=== PATIENT | male | born 1995 | race Caucasian/White ===

== ENCOUNTER 2018-05-29 19:39 | Emergency (ER) | payer MEDICAID, OTHER ==
[~2018-05-29] VITALS: Ht 175.3 cm; Wt 109.1 kg
[2018-05-29] MEDS ORDERED: ONDA4TAB6 PO (21:44)
[2018-05-29] MEDS ORDERED: ONDANSETRON 4 MG ORAL DISINTEGRATING TAB (Q0162 PER 1MG) PO ONE (21:45)
[2018-05-29] MEDS ORDERED: CYCL10TA PO (21:47)
[2018-05-29 21:51] VITALS: BP 141/64
== END 2018-05-29 22:03 | disposition home or self-care (01) ==
LOC: M ED 19:39
DX: K52.9 Noninfective gastroenteritis and colitis, unspecified (principal); F17.220 Nicotine dependence, chewing tobacco, uncomplicated; Z79.899 Other long term (current) drug therapy
CPT/HCPCS: 99283; Q0162

== ENCOUNTER → 2018-07-04 | Outpatient (REF) | payer OTHER ==
[~2018-07-04] MED LIST: CYCL10TA PO; ONDA4TAB6 PO
== END ==
LOC: M SFHCLERA 13:07
PROVIDERS: ATTEND Nurse Practitioner Family
DX: J02.9 Acute pharyngitis, unspecified (principal)

== ENCOUNTER 2018-07-23 19:23 | Emergency (ER) | payer OTHER, SELFPAY ==
[~2018-07-23] VITALS: Ht 175.3 cm; Wt 104.5 kg
[2018-07-23] MEDS ORDERED: ONDANSETRON 4MG/2ML VIAL (J2405) IV ONE (20:15)
[2018-07-23] MEDS ORDERED: ONDANSETRON 4 MG ORAL DISINTEGRATING TAB (Q0162 PER 1MG) PO ONE (20:15)
[2018-07-23 20:28] LABS: BASO # 0.1 10^3/uL (0.0-0.2); BASO % 0.7 % (0.0-1.0); EOS # 0.1 10^3/uL (0.0-0.50); EOS % 0.6 % (0.0-3.0); HEMATOCRIT 45.8 % (42.0-52.0); HEMOGLOBIN 15.1 g/dl (13.5-17.5); LYMPH # 2.9 10^3/uL (1.5-6.5); LYMPH % 25.5 % (24.0-44.0); MEAN CORPUSCULAR HEMOGLOBIN 28.3 pg (27.0-33.0); MEAN CORPUSCULAR VOLUME 85.8 fl (80.0-96.0); MONO # 0.6 10^3/uL (0.0-0.8); MONO % 5.1 % (0.0-5.0); NEUTROPHILS # 7.6 10^3/uL (1.8-7.7); NEUTROPHILS % 67.5 % (36.0-66.0); PLATELET COUNT, AUTOMATED 492 10^3/uL (150-450); RED BLOOD COUNT 5.34 10^6/uL (4.30-6.10); WHITE BLOOD COUNT 11.3 10^3/uL (4.0-10.0)
[2018-07-23 20:50] LABS: ALBUMIN 5.1 GM/DL (3.2-5.2); ALT/SGPT 55 U/L (12-78); BILIRUBIN,DIRECT 0.2 MG/DL (0.0-0.2); BILIRUBIN,TOTAL 0.8 MG/DL (0.2-1.0); BLOOD UREA NITROGEN 6 MG/DL (7-18); CALCIUM LEVEL 9.7 MG/DL (8.5-10.1); CARBON DIOXIDE LEVEL 26 MEQ/L (21-32); CHLORIDE LEVEL 106 MEQ/L (98-107); GLOMERULAR FILTRATION RATE > 60.0 (>60); GLUCOSE, FASTING 88 MG/DL (70-100); LIPASE 116 U/L (73-393); SODIUM LEVEL 140 MEQ/L (136-145); TOTAL PROTEIN 8.1 GM/DL (6.4-8.2)
--- NOTE | 2018-07-23 21:30 | REPVR ---
EXAM: US Abdomen Limited, Right Upper Quadrant EXAM DATE/TIME: 07/23/2018 8:41 PM CLINICAL HISTORY: 23 years old, male; Abdominal pain; Acute; Additional info: Ruq pain TECHNIQUE: Imaging protocol: Real-time ultrasound of the abdomen with image documentation. Examination was focused on the right upper quadrant. COMPARISON: No relevant prior studies available. FINDINGS: Liver: The liver is diffusely increased in echotexture. There is attenuation of sound as it passes through the liver. The liver measures at least 17 cm in craniocaudal span. Gallbladder: Normal. No gallstones. There is no gallbladder wall thickening. Common bile duct: The common bile duct measures 3 mm. Pancreas: Not seen due to bowel gas Right kidney: The right kidney measures 11.7 x 6.6 x 6.7 cm. No hydronephrosis IMPRESSION: 1. No gallstones. No ductal dilatation. 2. Hepatic steatosis. Electronically signed by: Kayla Westbrook On 07/23/2018 21:30:04 PM
[2018-07-23] MEDS ORDERED: ONDA4TAB6 PO (22:10)
[2018-07-23] MEDS ORDERED: ACETAMINOPHEN 325 MG TAB PO ONE (22:15)
[2018-07-23 22:17] VITALS: BP 139/85
== END 2018-07-23 22:26 | disposition home or self-care (01) ==
LOC: M ED 19:23
DX: A08.4 Viral intestinal infection, unspecified (principal); K76.0 Fatty (change of) liver, not elsewhere classified; Z20.828 Contact with and (suspected) exposure to other viral communicable diseases; F17.220 Nicotine dependence, chewing tobacco, uncomplicated
CPT/HCPCS: 36415; 76705; 80048; 80076; 83690; 85025; 99283; Q0162

== ENCOUNTER 2018-07-25 12:00 | Emergency (ER) | payer SELFPAY ==
[~2018-07-25] VITALS: Ht 175.3 cm; Wt 102.6 kg
[2018-07-25] MEDS ORDERED: NS 1,000 ML IV ONE (12:45)
[2018-07-25] MEDS ORDERED: METOCLOPRAMIDE INJ 10MG/2ML VIAL (J2765) IV ONE (12:45)
[2018-07-25] MEDS ORDERED: KETOROLAC 30 MG/ML VIAL (J1885) IV ONE (12:45)
[2018-07-25 13:29] LABS: BASO # 0.1 10^3/uL (0.0-0.2); BASO % 0.4 % (0.0-1.0); EOS % 0.2 % (0.0-3.0); HEMATOCRIT 44.3 % (42.0-52.0); HEMOGLOBIN 14.6 g/dl (13.5-17.5); LYMPH # 1.9 10^3/uL (1.5-6.5); LYMPH % 10.8 % (24.0-44.0); MEAN CORPUSCULAR HEMOGLOBIN 28.2 pg (27.0-33.0); MEAN CORPUSCULAR VOLUME 85.7 fl (80.0-96.0); MONO # 1.1 10^3/uL (0.0-0.8); MONO % 6.5 % (0.0-5.0); NEUTROPHILS % 81.7 % (36.0-66.0); PLATELET COUNT, AUTOMATED 425 10^3/uL (150-450); RED BLOOD COUNT 5.17 10^6/uL (4.30-6.10); WHITE BLOOD COUNT 17.1 10^3/uL (4.0-10.0)
[2018-07-25 14:00] LABS: INFLUENZA A AMPLIFICATION NEGATIVE (NEGATIVE); INFLUENZA B AMPLIFICATION NEGATIVE (NEGATIVE)
[2018-07-25 14:40] LABS: ALBUMIN 4.5 GM/DL (3.2-5.2); ALT/SGPT 53 U/L (12-78); BILIRUBIN,DIRECT 0.4 MG/DL (0.0-0.2); BILIRUBIN,TOTAL 2.2 MG/DL (0.2-1.0); BLOOD UREA NITROGEN 9 MG/DL (7-18); CALCIUM LEVEL 9.2 MG/DL (8.5-10.1); CARBON DIOXIDE LEVEL 25 MEQ/L (21-32); CHLORIDE LEVEL 103 MEQ/L (98-107); CREATININE FOR GFR 0.95 MG/DL (0.70-1.30); GLOMERULAR FILTRATION RATE > 60.0 (>60); GLUCOSE, FASTING 98 MG/DL (70-100); LIPASE 60 U/L (73-393); POTASSIUM SERUM 3.9 MEQ/L (3.5-5.1); SODIUM LEVEL 137 MEQ/L (136-145); TOTAL PROTEIN 8.3 GM/DL (6.4-8.2)
[2018-07-25] MEDS ORDERED: REGL10TA6 PO (15:01)
[2018-07-25 15:09] VITALS: BP 142/84
== END 2018-07-25 15:12 | disposition home or self-care (01) ==
LOC: M ED 12:00
DX: R11.2 Nausea with vomiting, unspecified (principal)
CPT/HCPCS: 80048; 80076; 83690; 85025; 87502; 99284; J1885; J2765

== ENCOUNTER → 2018-07-26 | Outpatient (REF) | payer OTHER ==
[~2018-07-26] MED LIST changes: +REGL10TA6 PO
== END ==
LOC: M SFHCLERA 13:15
PROVIDERS: ATTEND Physician Assistant
DX: J02.9 Acute pharyngitis, unspecified (principal)

== ENCOUNTER → 2019-02-27 | Outpatient (REF) | payer OTHER | LOC: M SFHCLERA 20:58 | PROVIDERS: ATTEND Nurse Practitioner Family | DX: R53.81 Other malaise (principal) ==

== ENCOUNTER → 2019-03-21 | Outpatient (CLI) | payer SELFPAY ==
--- NOTE | 2019-03-22 10:22 | REP ---
Three views left shoulder: 03/21/2019. Indication: Left shoulder pain following injury. Comparison: None. Findings: There is no acute fracture, subluxation or dislocation. No lytic or blastic lesions are present. The visualized lung is clear. Impression: No acute osseous injury of the left shoulder. Electronically Signed by Jaquan Umana DO 03/21/2019 04:41 P
== END ==
LOC: M LRY 16:13
PROVIDERS: ATTEND Physician Assistant
DX: S49.92XA Unspecified injury of left shoulder and upper arm, initial encounter (principal); X58.XXXA Exposure to other specified factors, initial encounter

== ENCOUNTER → 2019-05-02 | Outpatient (REF) | payer OTHER | LOC: M SFHCLERA 13:16 | PROVIDERS: ATTEND Nurse Practitioner Family | DX: R53.81 Other malaise (principal) ==